=== PATIENT | male | born 1955 | race Caucasian/White ===

== ENCOUNTER 2019-02-15 17:11 | Emergency (ER) | payer MEDICARE, MEDICAID ==
[~2019-02-15] VITALS: Ht 177.8 cm; Wt 89.8 kg
--- NOTE | 2019-02-15 17:30 | NUR ---
Pt came into the ed c/o sudden onset of left side back pain since yesterday, denies trauma. Pt aaox4, vss, breathing even and unlabored on room air w/ nad. Pt connected to the monitor and pox
[2019-02-15 17:53] LABS: APPEARANCE,URINE Clear (CLEAR); BILIRUBIN,URINE Negative (NEGATIVE); BLOOD, URINE Negative Ery/uL (NEGATIVE); COLOR,URINE Yellow (YELLOW); KETONES,URINE Negative (NEGATIVE); LEUKOCYTE ESTERASE ,URINE Negative (NEGATIVE); NITRITE, URINE Negative (NEGATIVE); PROTEIN,URINE Negative (NEGATIVE); UGLUCOSE Negative (NEGATIVE)
[2019-02-15 18:54] VITALS: BP 140/81
--- NOTE | 2019-02-15 18:55 | NUR ---
Patient discharged to home in stable condition. Written and verbal after care instructions given. Patient verbalizes understanding of instruction. Incentive spirometer provided to patient and teaching provided.
[2019-02-15 19:13] LABS: BACTERIA,URINE Few /HPF (None Seen); RBC,URINE 0-2 /HPF (0-2); SQUAMOUS EPITHELIAL CELL,UR Rare /HPF (None Seen); WBC,URINE 0-2 /HPF (0-3)
[2019-02-19] MEDS ORDERED: RIVA1TAB PO (09:00)
[2019-02-19] MEDS ORDERED: ACET325C7 PO (09:01)
== END 2019-02-15 18:54 | disposition home or self-care (01) ==
LOC: ER 17:14
DX: J18.9 Pneumonia, unspecified organism (principal)
CPT/HCPCS: 71045-TC; 81000-TC

== ENCOUNTER 2019-02-16 01:02 | Inpatient (IN) | payer MEDICARE, OTHER ==
[~2019-02-16] VITALS: Ht 185.4 cm; Wt 90.7 kg
--- NOTE | 2019-02-16 01:09 | NUR ---
"[id number] C/C MID BACK PAIN SINCE LAST NIGHT, SEEN HERE EARLIER TODAY FOR PNA" PT TO BED 6, PT AAOX4, -SOB, NAD NOTED, PT ON MONITOR, VSS ,DOMI NIXON
[2019-02-16] MEDS ORDERED: AZITHROMYCIN 250 MG TABLET PO ONE (01:30)
[2019-02-16] MEDS ORDERED: HYDROCODONE/APAP 5/325MG 1 EACH TABLET PO ONE (01:30)
[2019-02-16] MEDS ORDERED: HYDROCODONE/APAP 5/325MG 1 EACH TABLET ONE (01:37)
[2019-02-16] MEDS ORDERED: AZITHROMYCIN 250 MG TABLET ONE (01:37)
[2019-02-16] MEDS ORDERED: ASPIRIN 81 MG TAB.CHEW ONE (01:49)
[2019-02-16] MEDS ORDERED: NITROGLYCERIN PACKET 1 GM PACKET ONE (01:49)
--- NOTE | 2019-02-16 01:58 | NUR ---
PT REFUSED ASA AND MD DR ISAEL PERRY AWARE
[2019-02-16] MEDS ORDERED: ASPIRIN 81 MG TAB.CHEW PO ONE (02:00)
[2019-02-16] MEDS ORDERED: NITROGLYCERIN PACKET 1 GM PACKET TD ONE (02:00)
[2019-02-16 02:01] LABS: BASOPHILS # (AUTO) 0.1 /CMM (0.0-0.2); BASOPHILS % (AUTO) 1.1 % (0.0-2.0); EOSINOPHILS % (AUTO) 0.2 % (0.0-6.0); HEMATOCRIT 47 % (39-51); HEMOGLOBIN 15.8 g/dL (13.5-17.5); LYMPHOCYTES # (AUTO) 0.8 /CMM (0.8-4.8); LYMPHOCYTES % (AUTO) 7.2 % (20.0-44.0); MEAN CORPUSCULAR HGB CONC 34 g/dl (31.0-36.0); MEAN CORPUSCULAR VOLUME 92 fL (80-96); MONOCYTES # (AUTO) 0.9 /CMM (0.1-1.30); MONOCYTES % (AUTO) 8.2 % (2.0-12.0); NEUTROPHILS # (AUTO) 8.8 /CMM (1.8-8.9); NEUTROPHILS % (AUTO) 83.3 % (43.0-81.0); PLATELET COUNT (AUTO) 219 /CMM (150-450); RED BLOOD CELL COUNT(AUTO) 5.13 MIL/uL (4.5-6.0); WHITE BLOOD COUNT (AUTO) 10.5 K/uL (4.3-11.0)
--- NOTE | 2019-02-16 02:08 | NUR ---
ASSUMED CARE OF THE PATIENT FOR RAKAN.
[2019-02-16 02:44] LABS: ALANINE AMINOTRANSFERASE 24 U/L (12-78); ALBUMIN 4.2 g/dL (3.4-5.0); ALKALINE PHOSPHATASE 119 U/L (46-116); ASPARTATE AMINOTRANSFERASE 19 U/L (15-37); B-TYPE NATRIURETIC PEPTIDE 89 PG/ML (0-125); BILIRUBIN,DIRECT 0.2 mg/dL (0.0-0.2); BILIRUBIN,TOTAL 1.5 mg/dL (0.2-1.0); CALCIUM, SERUM 9.1 mg/dL (8.5-10.1); CARBON DIOXIDE 29 mmol/L (21-32); CHLORIDE 99 mmol/L (98-107); GLUCOSE 129 mg/dL (74-106); POTASSIUM 4.2 mmol/L (3.5-5.1); SODIUM SERUM 135 mmol/L (136-145); TOTAL PROTEIN, SERUM 8.3 g/dL (6.4-8.2); UREA NITROGEN, BLOOD 14 mg/dL (7-18)
--- NOTE | 2019-02-16 03:12 | NUR ---
PT AGREED TO A CT ANGIO, PER DR. KIRKLAND
[2019-02-16] MEDS ORDERED: CT SWABBABLE VALVE TRANS SET 1 EA INFUS.SET MC ONE (04:16)
[2019-02-16] MEDS ORDERED: IOHEXOL-350 100 ML VIAL IV ONE (04:16)
[2019-02-16] MEDS ORDERED: IV NS 0.9% 250 ML IV ONE (04:17)
--- NOTE | 2019-02-16 04:29 | NUR ---
PATIENT WENT TO CT.
[2019-02-16] MEDS ORDERED: HYDROMORPHONE 1 MG/1 ML DISP.SYRIN IV ONE (04:30)
[2019-02-16] MEDS ORDERED: HYDROMORPHONE 1 MG/1 ML DISP.SYRIN ONE (04:45)
--- NOTE | 2019-02-16 04:46 | NUR ---
RETURN FROM CT
[2019-02-16] MEDS ORDERED: LEVOFLOXACIN 500 MG /D5W 100ML 500 MG/100 ML PIGGYBACK IV ONE (05:00)
[2019-02-16] MEDS ORDERED: ENOXAPARIN SODIUM 100 MG/ML DISP.SYRIN SQ ONE ×2 (05:00→05:06)
[2019-02-16] MEDS ORDERED: LEVOFLOXACIN 500 MG /D5W 100ML 100 ML IV ONE (05:06)
[2019-02-16] MEDS ORDERED: HYDROCODONE/APAP 5/325MG 1 EACH TABLET PO PRN (06:00)
[2019-02-16] MEDS ORDERED: ACETAMINOPHEN 325 MG TABLET PO PRN (06:00)
[2019-02-16] MEDS ORDERED: ONDANSETRON HCL/PF 4 MG/2 ML VIAL IVP PRN (06:00)
[2019-02-16] MEDS ORDERED: MAGNESIUM HYDROXIDE 30 ML UDC PO PRN (06:00)
[2019-02-16] MEDS ORDERED: Z GUARD REMEDY 2 OZ OINT TP PRN (06:00)
[2019-02-16] MEDS ORDERED: ZOLPIDEM TARTRATE 5 MG TABLET PO PRN (06:00)
[2019-02-16] MEDS ORDERED: MAG HYDROX/AL HYDROX/SIMETH 30 ML UDC PO PRN (06:00)
--- NOTE | 2019-02-16 06:51 | NUR ---
REPORT GIVEN TO JEREMIAS BUSTILLO
[2019-02-16 07:00] VITALS: BP 124/84
--- NOTE | 2019-02-16 08:05 | NUR ---
FAMILY DAY CARE WORKER OPENING NOTES PATIENT ADMITTED FROM ED. RECEIVED REPORT FROM TOOL RADIAL DRILL PRESS SET UP OPERATOR CHARGE NURSE. PATIENT A&O X 4. ON ROOM AIR. NO S/S OF ACUTE RESPIRATORY DISTRESS. VITAL SIGNS - BP: 125/70 HR:91 RR14: TEMP:99.0 SPO2: 96 BELONGINGS LIST REVIEWED AND SIGNED BY PATIENT. PATIENT CALL LIGHT WITHIN REACH. WILL CONTINUE TO MONITOR.
[2019-02-16 08:15] VITALS: BP 125/70
--- NOTE | 2019-02-16 08:25 | NUR ---
REHABILITATION CENTER MANAGER NOTES PARTIAL SKIN ASSESSMENT DONE ON UPPER BODY (UPPER ARMS/CHEST). PATIENT REFUSED LOWER BODY SKIN ASSESSMENT.
[2019-02-16] MEDS ORDERED: IBUPROFEN 400 MG TABLET PO PRN (09:00)
[2019-02-16 12:00] VITALS: BP 125/70
--- NOTE | 2019-02-16 14:49 | NUR ---
Social service consult requested by Dr. Obregon for homelessness. Pt. is a 63 year old male who was admitted to [facility] for pulmonary embolism. SW attempt to assess the pt., however pt. declined to speak with SW.
--- NOTE | 2019-02-16 15:30 | NUR ---
DESIGN CELL ENGINEER NOTES PATIENT RESTING IN BED. STATES INTERMITTENT BACK PAIN RATED 5/10 LOCATED ON HIS RIGHT SIDE POSTERIORLY. PAIN WORSENS WHEN WALKING. OFFERED PATIENT PRN PAIN MEDICATION, BUT PATIENT DECLINED. WILL CONTINUE TO MONITOR PATIENT'S LEVEL OF PAIN.
[2019-02-16 16:00] VITALS: BP 139/79
[2019-02-16] MEDS: RIVAROXABAN 15 MG TABLET PO SCH (17:41)
--- NOTE | 2019-02-16 18:15 | NUR ---
EDUCATION SITE MANAGER CLOSING NOTES PATIENT RESTING IN BED, HIGH DE OLIVEIRA'S POSITION. A&O X 4. ON ROOM AIR. NO SIGNS OF ACUTE RESPIRATORY DISTRESS. REPORTS INTERMITTENT PAIN RATED 5-6/10 WITH MOVEMENT. PATIENT DECLINED PRN PAIN MEDICATION. VITAL SIGNS WNL - BP: 139/79 HR: 98 RR: 16 TEMP: 98.5 SPO2: 98 ON ROOM AIR. TELE MONITOR READING SINUS RHYTHM W/ BBB. IV ON RIGHT FOREARM ON SL. PATIENT CALL LIGHT WITHIN REACH. WILL ENDORSE TO WILDLIFE CONTROL AGENT NURSE TO FOLLOW PLAN OF CARE.
--- NOTE | 2019-02-16 20:06 | NUR ---
DISABILITY ADVOCATE NOTES PATIENT RESTING IN BED. ALERT AND ORIENTED X4, IN NO APPARENT DISTRESS NOTED. PATIENT REFUSED TO HAVE HIS VITAL SIGNS CHECK FOR INITIAL ASSESSMENT WELL COOK APPRENTICE PASTRY DESPITE OF EXPLANATION THE RISKS AND BENEFITS. PATIENT STATED "I WANNA SLEEP" PT. CONTINUES TO REFUSE. CHARGE NURSE NOTIFIED. WILL CONTINUE TO MONITOR. SAFETY PRECAUTIONS IMPLEMENTED. DENIES PAIN OR DISCOMFORT AT THIS TIME. BED ALARM IS ON, BED IN LOWEST POSITION. CALL LIGHT WITHIN REACH.
[2019-02-16] MEDS ORDERED: ENOXAPARIN SODIUM 100 MG/ML DISP.SYRIN SQ SCH (21:00)
[2019-02-17 04:46] VITALS: BP 129/80
[2019-02-17] MEDS: LEVOFLOXACIN 500 MG /D5W 100ML 500 MG in PREMIX 1 EA IV SCH (05:17)
[2019-02-17 06:38] LABS: CALCIUM, SERUM 8.5 mg/dL (8.5-10.1); CREATININE 0.9 mg/dL (0.6-1.3); MAGNESIUM 2.2 mg/dL (1.8-2.4); PHOSPHORUS 3.2 mg/dL (2.5-4.9); POTASSIUM 3.7 mmol/L (3.5-5.1)
[2019-02-17 06:46] LABS: BASOPHILS % (AUTO) 0.2 % (0.0-2.0); EOSINOPHILS % (AUTO) 0.2 % (0.0-6.0); HEMATOCRIT 42 % (39-51); HEMOGLOBIN 14.1 g/dL (13.5-17.5); LYMPHOCYTES # (AUTO) 1.9 /CMM (0.8-4.8); LYMPHOCYTES % (AUTO) 19.6 % (20.0-44.0); MEAN CORPUSCULAR HGB CONC 34 g/dl (31.0-36.0); MEAN CORPUSCULAR VOLUME 91 fL (80-96); MONOCYTES # (AUTO) 1.1 /CMM (0.1-1.30); MONOCYTES % (AUTO) 11.7 % (2.0-12.0); NEUTROPHILS # (AUTO) 6.6 /CMM (1.8-8.9); NEUTROPHILS % (AUTO) 68.3 % (43.0-81.0); PLATELET COUNT (AUTO) 199 /CMM (150-450); RED BLOOD CELL COUNT(AUTO) 4.55 MIL/uL (4.5-6.0); WHITE BLOOD COUNT (AUTO) 9.6 K/uL (4.3-11.0)
--- NOTE | 2019-02-17 07:05 | NUR ---
PLANS EXAMINER CLOSING NOTES PATIENT IN BED SLEEPING, AROUSES EASILY. NO S/SX OF ACUTE DISTRESS NOTED. DENIES PAIN OR DISCOMFORT. ON TELE MONITOR READING SR WITH BBB. IV LOCATED ON RFA #22. ALL NEEDS ATTENDED AND ANTICIPATED. SAFETY PRECAUTIONS IN PLACE WITH BED IN LOWEST POSITION, LOCKED, BED ALARM ON, AND CALL LIGHT WITHIN REACH.
--- NOTE | 2019-02-17 07:15 | NUR ---
ms rn received on bed, awake,alert,oriented x4,not in any form of distress, respirations even and unlabored,no sob noted, lungs are clear,abdomen soft,positive bowel sounds,denies pain at this time, will monitor patient's condition.
[2019-02-17] MEDS ORDERED: ACETAMINOPHEN W/ CODEINE#3 1 EA TABLET PO PRN (07:30)
[2019-02-17 07:49] LABS: ALBUMIN 3.1 g/dL (3.4-5.0); BILIRUBIN,DIRECT 0.3 mg/dL (0.0-0.2); BILIRUBIN,TOTAL 2.4 mg/dL (0.2-1.0); TOTAL PROTEIN, SERUM 6.8 g/dL (6.4-8.2)
[2019-02-17] MEDS ORDERED: HYDROCODONE/APAP 5/325MG 1 EACH TABLET PO PRN (08:00)
--- NOTE | 2019-02-17 08:05 | NUR ---
ms rn patient is so demanding and very complainant,all needs attended.
--- NOTE | 2019-02-17 08:30 | NUR ---
ms rn was seen by dr. derick bryant/ orders made and carried out.
[2019-02-17] MEDS: RIVAROXABAN 15 MG TABLET PO SCH ×2 (09:37→18:36)
--- NOTE | 2019-02-17 10:00 | NUR ---
ms rn patient wants to go shower, shirts provided, but refused, throw away the shirts that were given, refused pain meds, and to assess skin.
--- NOTE | 2019-02-17 16:00 | NUR ---
ms rn on bed, still has a lot of complain. case hardener aware.
[2019-02-18] MEDS ORDERED: LEVOFLOXACIN 500 MG /D5W 100ML 100 ML IV ONE (06:14)
[2019-02-18] MEDS: LEVOFLOXACIN 500 MG /D5W 100ML 500 MG in PREMIX 1 EA IV SCH (06:18)
--- NOTE | 2019-02-18 06:39 | NUR ---
MS RN NOTES AWAKE & RESPONSIVE. NOT IN ANY DISTRESS. NO SOB NOTED. DENIES ANY PAIN OR DISCOMFORT AT THIS TIME. WITH IVF INFUSING WELL. MONITORED ACCORDINGLY. CALL LIGHT WITHIN REACH. BED IN LOWEST POSITION. SR UP X 2 FOR SAFETY. WILL ENDORSE TO NEXT SHIFT.
[2019-02-18 08:00] VITALS: BP 110/68
--- NOTE | 2019-02-18 08:00 | NUR ---
MS RN AM NOTES PATIENT RESTING IN BED, HIGH DE OLIVEIRA'S POSITION. A&O X 4. ON ROOM AIR. NO SIGNS OF ACUTE RESPIRATORY DISTRESS. REPORTS INTERMITTENT PAIN RATED 5-6/10 WITH MOVEMENT. PATIENT REFUSED PRN PAIN MEDICATION INSPITE OF THE FACIAL GRIMACING NOTED WHILE AMBULATING WITH P.T. PT REFUSED AM BLOOD DRAW SAYING IT IS JUST MONEY MAKING SCHEME. EXPLAINED THE RISKS, IMPORTANCE AND BENEFITS OF HAVING BLOOD DRAW.PT INSISTS TO REFUSE.IV ON RIGHT FOREARM ON SL. PATIENT CALL LIGHT WITHIN REACH.
[2019-02-18] MEDS: RIVAROXABAN 15 MG TABLET PO SCH ×2 (09:04→16:16)
[2019-02-18 16:00] VITALS: BP 109/64
--- NOTE | 2019-02-18 16:22 | NUR ---
pt still refusing blood draw for the 4th time after explaining the risks and benefits.
--- NOTE | 2019-02-18 16:31 | NUR ---
PT PROMISED TO HAVE HIS BLOOD DRAW TOMORROW.
--- NOTE | 2019-02-18 17:18 | NUR ---
RESTING IN BED DENYING ANY DISTRESS/DISCOMFORT.PT REFUSED TO TAKE PAIN MEDS PRN.CALL LIGHT PLACED WITHIN REACH.
--- NOTE | 2019-02-18 19:06 | NUR ---
PT IN THE HALLWAY SITTING IN THE WHEELCHAIR WITH NO BLEEDING NOTED.DENIES ANY PAIN OR DISTRESS.
--- NOTE | 2019-02-18 19:35 | NUR ---
RN OPENING NOTES RECEIVED REPORT FROM DAYSHIFT RN, HARRY Sorenson FOUND Pt AWAKE, RESTING IN BED. NO S/S OF ACUTE DISTRESS OR SOB NOTED. NO C/O PAIN OR DISCOMFORT AT THIS TIME. Pt IS A/OX4, VERBAL, ABLE TO MAKE NEEDS KNOWN. PER REPORT Pt HAS BEEN REFUSING SKIN ASSESSMENT, LABS, & VS. SPOKE WITH Pt ABOUT IT, AND Pt AGREED TO HAVE HIS LABS DRAWN TOMORROW MORNING. IV ACCESS ON RFA #22G, SL. SAFETY MEASURES IN PLACE. BED LOW, LOCKED, HOB ELEVATED, SIDE RAILS UP, CALL LIGHT AND BEDSIDE TABLE WITHIN REACH. WILL CONTINUE TO MONITOR Pt's CONDITION AND SAFETY THROUGHOUT THE NIGHT.
--- NOTE | 2019-02-18 20:00 | NUR ---
RN NOTES SPOKE WITH LAB ON THE PHONE. INFORMED THEM THAT Pt AGREED FOR HIS LABS TO BE DRAWN TOMORROW INSTEAD.
--- NOTE | 2019-02-18 20:15 | NUR ---
RN NOTES Pt REFUSED THE 1999 VS CHECK. SAID HE WANTS IT DONE IN THE MORNING INSTEAD.
--- NOTE | 2019-02-19 02:09 | NUR ---
RN NOTES ENDORSED TO KENY CARLTON FOR Pt's RAKAN. ALL NEEDS MET AND ATTENDED TO. SAFETY MEASURES IN PLACE.
--- NOTE | 2019-02-19 02:10 | NUR ---
MS/RN NOTES RECEIVED REPORT AND PT. FROM KENY EDWARD. PT. IS SITTING UP IN BED WATCHING TV. PT. IS AWAKE, ALERT AND ORIENTED X 2-3. BREATHING EVEN AND UNLABORED ON ROOM AIR. NO SOB, RESPIRATORY DISTRESS OR COMPLAINTS OF PAIN NOTED AT THIS TIME. PT. WITH RIGHT FOREARM 22 GAUGE IV SALINE LOCK PRESENT, PATENT AND INTACT. BED LOCKED AND IN LOWEST POSITION, SIDE RAILS UP X2, CALL LIGHT WITHIN REACH, WILL CONTINUE TO MONITOR.
[2019-02-19] MEDS: LEVOFLOXACIN 500 MG /D5W 100ML 500 MG in PREMIX 1 EA IV SCH (05:40)
--- NOTE | 2019-02-19 06:17 | NUR ---
MS/RN NOTES PT. IS LYING IN BED RESTING. BREATHING EVEN AND UNLABORED ON ROOM AIR. NO SOB, RESPIRATORY DISTRESS OR COMPLAINTS OF PAIN NOTED AT THIS TIME. PT. WITH RIGHT FOREARM 22 GAUGE PERIPHERAL IV PRESENT, PATENT AND INTACT ADMINISTERING TO PATIENT ANTIBIOTICS ORDERED. ALL PT. NEEDS MET. BED LOCKED AND IN LOWEST POSITION, SIDE RAILS UP X2, CALL LIGHT WITHIN REACH, WILL ENDORSE TO DAYSHIFT NURSE FOR CONTINUITY OF CARE.
--- NOTE | 2019-02-19 07:43 | NUR ---
MS RN OPENING NOTES RECEIVED PATIENT ASLEEP IN BED. AROUSABLE TO VERBAL AND TACTILE STIMULI. NO SOB. DENIES ANY C/O PAIN NOR DISCOMFORT AT THIS TIME. RFA SL # 22 INTACT AND PATENT. RESTING COMFORTABLY IN BED AT THIS TIME. BED IN LOWEST POSITION, LOCKED. BED SIDERAILS UP X2. CALL LIGHT WITHIN REACH.
[2019-02-19 08:00] VITALS: BP 117/58
[2019-02-19 08:54] LABS: ALBUMIN 3.1 g/dL (3.4-5.0); BILIRUBIN,TOTAL 0.9 mg/dL (0.2-1.0); CALCIUM, SERUM 9.2 mg/dL (8.5-10.1); CREATININE 0.9 mg/dL (0.6-1.3); POTASSIUM 4.6 mmol/L (3.5-5.1); TOTAL PROTEIN, SERUM 7.1 g/dL (6.4-8.2)
[2019-02-19] MEDS ORDERED: ACET-907 PO (09:00)
[2019-02-19] MEDS ORDERED: RIVA1TAB PO (09:00)
[2019-02-19] MEDS ORDERED: ACET325C7 PO (09:01)
[2019-02-19] MEDS: RIVAROXABAN 15 MG TABLET PO SCH (09:41)
--- NOTE | 2019-02-19 15:36 | NUR ---
MS TAX ASSOCIATE ATTORNEY/CLOSING NOTES PATIENT ALERT AND ORIENTED X4. DISCHARGE PACKET AND DISCHARGE INSTRUCTIONS GIVEN TO PATIENT ALONG WITH CD OF CT/RADIOLOGY. TAP CARD GIVEN AND CLOTHING PROVIDED TO PATIENT WITH HOMELESS WAIVER SIGNED. PER PATIENT HE WILL RETURN HOME TO [place] IN HIS TENT. IV ACCESS REMOVED WITH PRESSURE DRESSING APPLIED DUE TO PATIENT REFUSED TO HAVE TAPE APPLIED. PATIENT SHOWERED AND SHAVED, AMBULATORY WITH STEADY GAIT. PATIENT PACKED OWN BELONGINGS AND ALL BELONGINGS ACCOUNTED FOR. NO SOB. DENIES ANY C/O PAIN NOR DISCOMFORT. WALKER PROVIDED PER PHYSICAL THERAPY RECOMMENDATIONS. PATIENT READY FOR DISCHARGE, BUT PATIENT REFUSED TO LEAVE COMPLAINING OF HOW HE WILL GET TO HIS HOME, HOW HE WILL CARRY HIS BELONGINGS AND WANTS SOMEONE TO CARRY HIS BELONGINGS GOING TO HIS HOME AND WANTS A TAXI TO TAKE HIM TO HIS HOME. INFORMED PATIENT THAT TAP CARD WAS GIVEN FOR TRANSPORTATION AND THAT HE IS MEDICALLY STABLE AND WITH ORDER FOR DISCHARGED. INFORMED PATIENT THAT CLOTHING AND BAGS HAS BEEN PROVIDED ALONG WITH WALKER BY HOSPITAL. CALLED SECURITY AND PATIENT LEFT IN STABLE CONDITION. IN NO APPARENT DISTRESS. CASE MANAGEMENT ALSO MADE AWARE.
== END 2019-02-19 15:30 | disposition home or self-care (01) | DRG 175 ==
LOC: ER 01:02 → TELE 05:52 → MED 02-17 08:19
PROVIDERS: ADMIT Internal Medicine; ATTEND Internal Medicine
DX: I26.99 Other pulmonary embolism without acute cor pulmonale (principal); J15.9 Unspecified bacterial pneumonia; E87.1 Hypo-osmolality and hyponatremia; J98.11 Atelectasis; Z59.0 Homelessness; R09.1 Pleurisy; R74.0 Nonspecific elevation of levels of transaminase and lactic acid dehydrogenase [LDH]
CPT/HCPCS: 36415; 76700-TC; 80048-TC; 80053-TC; 80061-TC; 80076-TC; 83615-TC; 83735-TC; 83880; 84100-TC; 84484-TC; 85025-TC; 85303; 85378-TC; 87081-TC; 93307-TC; 93970-TC; 97110-TC; 97116-TC; 97530-TC; A4216; G0378; J1170; J1650; J1956; J7050; Q9967

== ENCOUNTER 2022-04-07 15:18 | Emergency (ER) | payer MEDICARE, OTHER ==
[~2022-04-07] VITALS: Ht 172.7 cm; Wt 81.6 kg
[~2022-04-07 15:18] MED LIST: ACET325C7 PO; RIVA1TAB PO
[2022-04-07 16:04] LABS: BASOPHILS # (AUTO) 0.1 K/uL (0.0-0.2); BASOPHILS % (AUTO) 1.1 % (0.0-2.0); EOSINOPHILS % (AUTO) 0.5 % (0.0-6.0); HEMATOCRIT 46 % (39-51); HEMOGLOBIN 15.2 g/dL (13.5-17.5); LYMPHOCYTES # (AUTO) 0.6 K/uL (0.8-4.8); LYMPHOCYTES % (AUTO) 6.1 % (20.0-44.0); MEAN CORPUSCULAR HGB CONC 34 g/dl (31.0-36.0); MEAN CORPUSCULAR VOLUME 91 fL (80-96); MONOCYTES # (AUTO) 0.2 K/uL (0.1-1.30); MONOCYTES % (AUTO) 2.1 % (2.0-12.0); NEUTROPHILS # (AUTO) 9.4 K/uL (1.8-8.9); NEUTROPHILS % (AUTO) 90.2 % (43.0-81.0); PLATELET COUNT (AUTO) 295 K/uL (150-450); RED BLOOD CELL COUNT(AUTO) 5.03 MIL/uL (4.5-6.0); WHITE BLOOD COUNT (AUTO) 10.4 K/uL (4.3-11.0)
--- NOTE | 2022-04-07 16:20 | NUR ---
PHLEB ABLE TO DRAW BLOOD
[2022-04-07] MEDS ORDERED: ASPIRIN 325 MG TABLET PO ONE (16:30)
--- NOTE | 2022-04-07 16:35 | NUR ---
PT REFUSED IV LINE INSERTION AT THIS TIME
[2022-04-07 16:54] LABS: ALANINE AMINOTRANSFERASE 17 U/L (12-78); ALKALINE PHOSPHATASE 80 U/L (46-116); ASPARTATE AMINOTRANSFERASE 19 U/L (15-37); BILIRUBIN,DIRECT 0.2 mg/dL (0.0-0.2); BILIRUBIN,TOTAL 1.8 mg/dL (0.2-1.0); CALCIUM, SERUM 9.2 mg/dL (8.5-10.1); CARBON DIOXIDE 28 mmol/L (21-32); CHLORIDE 99 mmol/L (98-107); CREATININE 1.1 mg/dL (0.6-1.3); GLUCOSE 146 mg/dL (74-106); SODIUM SERUM 136 mmol/L (136-145); TOTAL PROTEIN, SERUM 7.6 g/dL (6.4-8.2); UREA NITROGEN, BLOOD 16 mg/dL (7-18)
[2022-04-07] MEDS ORDERED: ASPIRIN 325 MG TABLET ONE (16:54)
--- NOTE | 2022-04-07 17:04 | NUR ---
covid swab taken
--- NOTE | 2022-04-07 17:35 | NUR ---
[facility]. [phone]
--- NOTE | 2022-04-07 19:02 | NUR ---
[facility] FOR REFLEX TROPONIN FOR PT; ORDER READ BACK, VERIFIED, AND CARRIED OUT.
[2022-04-07] MEDS ORDERED: FAMOTIDINE (20 MG) 20 MG TABLET ONE (19:55)
[2022-04-07] MEDS ORDERED: FAMOTIDINE (20 MG) 20 MG TABLET PO ONE (20:00)
[2022-04-07 20:10] VITALS: BP 138/74
--- NOTE | 2022-04-07 20:10 | NUR ---
IV LINE ESTABLISHED, [id number]
--- NOTE | 2022-04-07 20:11 | NUR ---
BLOOD COLLECTED AND SENT TO LAB
--- NOTE | 2022-04-07 21:14 | NUR ---
DR BUTCHER ON THE PHONE WITH DR BUTCHER Addendum: 04/07/22 at 2128 by TEQUILA CORRECTION: DR BUTCHER ON THE PHONE WITH DR REYEZ AT [facility]
--- NOTE | 2022-04-07 21:29 | NUR ---
TRANSPORTATION AUTH NUMBER: [id number]
[2022-04-07] MEDS ORDERED: MAG HYDROX/AL HYDROX/SIMETH 30 ML UDC PO ONE (21:30)
[2022-04-07] MEDS ORDERED: MAG HYDROX/AL HYDROX/SIMETH 30 ML UDC ONE (21:50)
--- NOTE | 2022-04-07 22:27 | NUR ---
FAXED FACE SHEET AND CLINICALS TO [facility] AT [facility] [phone]
--- NOTE | 2022-04-07 23:16 | NUR ---
PT IS ACCPETED AT [facility] UNDER CARE OF DR REYEZ. GOING TO ROOM 610-A. # FOR REPORT: [phone] HADLEY GOMEZ FOR BLS TRANSFER. EMMY ETA: IN 2 HOURS. RAHUL CONNELL MADE AWARE OF THE ETA. [phone]
--- NOTE | 2022-04-07 23:57 | NUR ---
REPORT GIVEN TO CHOCO BUSTILLO AT [facility] FOR RAKAN, AMBULANCE SHOULD CHECK IN AT ER
--- NOTE | 2022-04-08 01:01 | NUR ---
[facility] AT BEDSIDE FOR TRANSPORTATION TO [facility]
== END 2022-04-08 01:19 | disposition short-term general hospital (02) ==
LOC: ER 15:24
DX: R07.9 Chest pain, unspecified (principal); Z20.822 Contact with and (suspected) exposure to COVID-19; Z59.00 Homelessness unspecified
CPT/HCPCS: 36415; 71045-TC; 80048-TC; 80076-TC; 83880; 84484-TC; 85025-TC; 87081-TC; C9803

== ENCOUNTER 2024-02-12 15:51 | Emergency (ER) | payer MEDICARE, OTHER ==
[~2024-02-12] VITALS: Ht 182.9 cm; Wt 79.4 kg
[2024-02-12] MEDS ORDERED: CEPH-570 PO (16:25)
[2024-02-12 16:42] LABS: APPEARANCE,URINE TURBID (CLEAR); BILIRUBIN,URINE NEGATIVE (NEGATIVE); BLOOD, URINE 3+ Ery/uL (NEGATIVE); COLOR,URINE DARK YELLOW (YELLOW); KETONES,URINE NEGATIVE (NEGATIVE); LEUKOCYTE ESTERASE ,URINE 1+ (NEGATIVE); NITRITE, URINE POSITIVE (NEGATIVE); PH,URINE 7.5 (5.0-8.0); PROTEIN,URINE 2+ mg/dl (NEGATIVE); UGLUCOSE NEGATIVE (NEGATIVE)
[2024-02-12 16:42] LABS: BASOPHILS % (AUTO) 0.4 % (0.0-2.0); EOSINOPHILS # (AUTO) 0.1 K/uL (0.0-0.7); EOSINOPHILS % (AUTO) 0.6 % (0.0-6.0); HEMATOCRIT 42 % (39-51); HEMOGLOBIN 14.4 g/dL (13.5-17.5); LYMPHOCYTES # (AUTO) 1.9 K/uL (0.8-4.8); LYMPHOCYTES % (AUTO) 19.1 % (20.0-44.0); MEAN CORPUSCULAR HEMOGLOBIN 31 PG (26.0-33.0); MEAN CORPUSCULAR HGB CONC 34 g/dl (31.0-36.0); MEAN CORPUSCULAR VOLUME 90 fL (80-96); MONOCYTES % (AUTO) 10.3 % (2.0-12.0); NEUTROPHILS # (AUTO) 7.1 K/uL (1.8-8.9); NEUTROPHILS % (AUTO) 69.6 % (43.0-81.0); PLATELET COUNT (AUTO) 230 K/uL (150-450); RED BLOOD CELL COUNT(AUTO) 4.71 MIL/uL (4.5-6.0); RED CELL DISTRIBUTION WIDTH 14.1 % (11.5-15.0); WHITE BLOOD COUNT (AUTO) 10.2 K/uL (4.3-11.0)
[2024-02-12 16:49] LABS: ADD URINE CULTURE YES; BACTERIA,URINE 1+ /HPF (None Seen); RBC,URINE TOO NUMEROUS TO COUN /HPF (0-2); WBC,URINE 21-50 /HPF (0-3)
[2024-02-12 16:50] LABS: SQUAMOUS EPITHELIAL CELL,UR 0-2 /HPF (None Seen)
[2024-02-12 16:57] LABS: CALCIUM, SERUM 8.9 mg/dL (8.5-10.1); CREATININE 1.1 mg/dL (0.6-1.3)
[2024-02-12] MEDS ORDERED: CEPHALEXIN MONOHYDRATE 500 MG CAPSULE PO ONE (17:30)
[2024-02-12 17:56] VITALS: BP 128/80; TEMP 98.8; O2SAT 99
== END 2024-02-12 17:57 | disposition home or self-care (01) ==
LOC: ER 16:04
DX: N39.0 Urinary tract infection, site not specified (principal); Z87.440 Personal history of urinary (tract) infections
CPT/HCPCS: 36415; 80048-TC; 81001; 85025-TC; 87086-TC